=== PATIENT | female | born 1995 | race African-American/Black ===

== ENCOUNTER 2017-04-19 11:06 | Emergency (ER) | payer SELFPAY ==
[2017-04-19] MEDS ORDERED: HYDROCODONE/ACETAMINOPHEN 5-325 MG TABLET PO ONE (11:51)
--- NOTE | 2017-04-19 11:59 | ER Document Report ---
ED GI/ - General Chief Complaint: Abdominal Pain Stated Complaint: PAIN AT SURGICAL SITE Time Seen by Provider: 04/19/17 11:31 TRAVEL OUTSIDE OF THE [place] IN LAST 30 DAYS: No - HPI Patient complains to provider of: Pelvic pain Timing/Duration: Persistent Quality of pain: Sharp Severity at maximum: Severe Severity in ED: Moderate Location: Suprapubic Associated symptoms: None Exacerbated by: Denies Relieved by: Denies Similar symptoms previously: Yes Recently seen / treated by doctor: Yes Notes: 04/19/17 11:59 04/19/17 11:53 Patient is a 25-year-old female presenting to the emergency room complaining of pain to her scar that has been going on since the beginning of the year, she states that she has been seen by her SALES [employer] who put her on Depo- Provera hoping it would make her pain better, however it has not, she denies any fever or chills, no dysuria, no nausea or vomiting, no vaginal discharge or irregular bleeding, although she did develop some spotting a couple days ago, states the pain doubled her over today - Related Data Allergies/Adverse Reactions: No Known Allergies Allergy (Verified 04/19/17 11:10) Past Medical History - General Information source: Patient - Social History Smoking Status: Never Smoker Family History: Reviewed & Not Pertinent Renal/ Medical History: Denies: Hx Peritoneal Dialysis Review of Systems - Review of Systems Constitutional: No symptoms reported EENT: No symptoms reported Cardiovascular: No symptoms reported Respiratory: No symptoms reported Gastrointestinal: See HPI Genitourinary: No symptoms reported Female Genitourinary: No symptoms reported Musculoskeletal: No symptoms reported Skin: No symptoms reported Hematologic/Lymphatic: No symptoms reported Neurological/Psychological: No symptoms reported -: Yes All other systems reviewed and negative Physical Exam - Vital signs Vitals: Temp Pulse Resp BP Pulse Ox 98.6 F 67 20 123/51 L 100 04/19/17 11:10 04/19/17 11:10 04/19/17 11:10 04/19/17 11:10 04/19/17 11:10 Interpretation: Normal - General General appearance: Appears well, Alert - HEENT Head: Normocephalic, Atraumatic Eyes: Normal Pupils: PERRL - Respiratory Respiratory status: No respiratory distress Chest status: Nontender Breath sounds: Normal Chest palpation: Normal - Cardiovascular Rhythm: Regular Heart sounds: Normal auscultation Murmur: No - Abdominal Inspection: Normal Distension: No distension Bowel sounds: Normal Tenderness: Tender - In the suprapubic region at the midline of patient's C- section scar there is a 2 cm firm nodule that is tender to palpate, there is no erythema, no fluctuance and no drainage, the scar is otherwise clean dry and intact Organomegaly: No organomegaly - Back Back: Normal, Nontender - Extremities General upper extremity: Normal inspection, Nontender, Normal color, Normal ROM , Normal temperature General lower extremity: Normal inspection, Nontender, Normal color, Normal ROM , Normal temperature, Normal weight bearing. No: Alexandra's sign - Neurological Neuro grossly intact: Yes Cognition: Normal Orientation: AAOx4 K[place] Coma Scale Eye Opening: Spontaneous Kulwant Coma Scale Verbal: Oriented [place] Coma Scale Motor: Obeys Commands [place] Coma Scale Total: 15 Speech: Normal Motor strength normal: LUE, RUE, LLE, RLE Sensory: Normal - Psychological Associated symptoms: Normal affect, Normal mood - Skin Skin Temperature: Warm Skin Moisture: Dry Skin Color: Normal Course - Re-evaluation Re-evalutation: 04/19/17 15:54 Ultrasound findings were discussed with on-call OB, Dr. Tellez, she says findings are consistent with endometrioma, recommends patient receive pain medication and follow-up in the office next week for possible resection, this plan and lab and imaging findings were discussed with patient at bedside as well and she is in agreement - Vital Signs Vital signs: Temp Pulse Resp BP Pulse Ox 98.6 F 67 20 123/51 L 100 04/19/17 11:10 04/19/17 11:10 04/19/17 11:10 04/19/17 11:10 04/19/17 11:10 - Laboratory Laboratory results interpreted by me: 04/19/17 12:15 Urine Blood SMALL H Ur Leukocyte Esterase TRACE H - Diagnostic Test Radiology reviewed: Image reviewed, Reports reviewed Discharge - Discharge Clinical Impression: Pelvic pain, Endometrioma Condition: Stable Disposition: HOME, SELF-CARE Instructions: Oral Narcotic Medication ([facility]), Pelvic Pain ([facility]) Additional Instructions: Follow-up with [employer] in the office next week. Return to the emergency room if symptoms worsen or any additional concerns. Prescriptions: Tramadol HCl/Acetaminophen [Ultracet 37.5 mg/325 mg Tablet] 1 each PO Q6 #20 tablet Forms: Return to Work Referrals: LATISHA ANNE MD [Primary Care Provider] - Follow up as needed
[2017-04-19 12:32] LABS: APPEARANCE,URINE CLEAR; BILIRUBIN,URINE NEGATIVE (NEGATIVE); GLUCOSE, URINE NEGATIVE (NEGATIVE); KETONES,URINE NEGATIVE (NEGATIVE); LEUKOCYTE ESTERASE,URINE TRACE (NEGATIVE); NITRITE,URINE NEGATIVE (NEGATIVE); PROTEIN,URINE NEGATIVE (NEGATIVE); URINE SPECIFIC GRAVITY 1.013; UROBILINOGEN,URINE NEGATIVE mg/dL (<2.0)
--- NOTE | 2017-04-19 15:39 | RADIOLOGY REPORT (SQ) ---
EXAM DESCRIPTION: U/S NON OB PEL W/DOPPLER COMPLETED DATE/TIME: 04/19/2017 3:13 pm REASON FOR STUDY: pain at c-sec scar COMPARISON: None. TECHNIQUE: Dynamic and static grayscale images acquired of the pelvis via transabdominal approach an d recorded on PACS. Additional selected color Doppler and spectral images recorded. LIMITATIONS: Mildly limited by body habitus and uterine position. FINDINGS: UTERUS: Contour normal. No mass. ENDOMETRIAL STRIPE: No focal or generalized thickening. No masses. CERVIX: No nabothian cysts. RIGHT OVARY: No abnormal masses. RIGHT OVARY DOPPLER: Normal arterial vascular flow without evidence for torsion. LEFT OVARY: Not seen. LEFT OVARY DOPPLER: Ovary not visualized. FREE FLUID: None noted. OTHER: In the ventral abdominal wall deep subcutaneous tissues underlying the area of scar, there is irregular hypoechoic tissue with internal blood flow. This could simply represent exuberan t scar. Endometriosis implant could have a similar appearance. At least by ultrasound, this does no t look like drainable fluid. MEASUREMENTS: UTERUS: 7 x 4 cm. ENDOMETRIAL STRIPE: 5 mm. RIGHT OVARY: 3 x 2 x 2 cm LEFT OVARY: Not seen. IMPRESSION: 1. Uterus and right ovary fairly unremarkable. Left ovary not seen. 2. Heterogeneous hypoechoic tissue along the abdominal wall close to the region of scar. Potentially exuber ant scarring/keloid formation. Mass/ endometriosis implant also in the differential. This does not look like simple drainable fluid. TECHNICAL DOCUMENTATION: JOB ID: [id number] [employer]- All Rights Reserved
[2017-04-19 15:59] VITALS: BP 109/67
== END 2017-04-19 16:01 | disposition home or self-care (01) ==
LOC: ER 11:06
DX: R10.2 Pelvic and perineal pain (principal); N80.9 Endometriosis, unspecified
CPT/HCPCS: 76856; 81001; 93976; 99284

== ENCOUNTER 2017-04-22 11:58 | Emergency (ER) | payer SELFPAY ==
[2017-04-22 12:23] VITALS: BP 118/65
[2017-04-22] MEDS ORDERED: OXYCODONE-ACETAMINOPHEN 5-325 MG TABLET PO ONE (12:56)
--- NOTE | 2017-04-22 12:56 | ER Document Report ---
ED General - General Chief Complaint: Abdominal Pain Stated Complaint: ABDOMINAL PAIN Time Seen by Provider: 04/22/17 12:52 Mode of Arrival: Ambulatory Information source: Patient Notes: Patient states she was seen here 3 days ago. At that time she was diagnosed with an endometrioma. She was sent home with tramadol and instructed to follow- up with the [facility] [employer] doctor, Dr. Robles. She states she has an appointment with Dr. Robles today at 2:30 PM. She states she comes in now because the tramadol is not strong enough for the pain. She denies any other new symptoms. The pain is over her scar. It does radiate across her abdomen. It is constant and severe. It is sharp. TRAVEL OUTSIDE OF THE [place] IN LAST 30 DAYS: No - Related Data Allergies/Adverse Reactions: No Known Allergies Allergy (Verified 04/22/17 12:22) Past Medical History - General Information source: Patient - Social History Smoking Status: Never Smoker Frequency of alcohol use: Occasional Drug Abuse: None Family History: Reviewed & Not Pertinent Renal/ Medical History: Denies: Hx Peritoneal Dialysis Past Surgical History: Reports: Hx Section Review of Systems - Review of Systems Constitutional: denies: Chills, Fever Cardiovascular: denies: Chest pain, Palpitations Respiratory: denies: Cough, Short of breath Physical Exam - Vital signs Vitals: Temp Pulse Resp BP Pulse Ox 98.7 F 82 18 118/65 98 04/22/17 12:21 04/22/17 12:21 04/22/17 12:21 04/22/17 12:21 04/22/17 12:21 Interpretation: Normal - General General appearance: Appears well, Alert - Respiratory Respiratory status: No respiratory distress Chest status: Nontender Breath sounds: Normal Chest palpation: Normal - Cardiovascular Rhythm: Regular Heart sounds: Normal auscultation Murmur: No - Abdominal Distension: No distension Tenderness: Tender Organomegaly: No organomegaly - Tender over lower abdomen - Psychological Associated symptoms: Normal affect, Normal mood - Skin Skin Temperature: Warm Skin Moisture: Dry Skin Color: Normal Course - Vital Signs Vital signs: Temp Pulse Resp BP Pulse Ox 98.7 F 82 18 118/65 98 04/22/17 12:21 04/22/17 12:21 04/22/17 12:21 04/22/17 12:21 04/22/17 12:21 Discharge - Discharge Clinical Impression: Endometrioma Condition: Stable Disposition: HOME, SELF-CARE Instructions: Abdominal Pain ([facility]) Additional Instructions: Follow-up today with Dr. Robles as scheduled. Prescriptions: Oxycodone HCl/Acetaminophen [Percocet 5-325 mg Tablet] 1 - 2 tab PO Q4H PRN #10 tablet PRN Reason: Referrals: SANTA ROBLES MD [ACTIVE STAFF] - Follow up as needed
== END 2017-04-22 13:06 | disposition home or self-care (01) ==
LOC: ER 11:58
DX: N80.9 Endometriosis, unspecified (principal); R10.9 Unspecified abdominal pain
CPT/HCPCS: 99283

== ENCOUNTER 2017-05-18 21:06 | Emergency (ER) | payer SELFPAY ==
[2017-05-18 21:16] VITALS: BP 135/69
--- NOTE | 2017-05-18 23:39 | ER Document Report ---
ED General - General Chief Complaint: Incision Pain Stated Complaint: PAIN AT INCISION SITE Time Seen by Provider: 05/18/17 22:12 Notes: Patient is a 22-year-old female with a past medical history of chronic lower abdominal pain since August 2016. She states it is a constant, stabbing pain to the lower abdomen. She states that she has tried ibuprofen, Tylenol, Percocet, and tramadol none of which have helped her pain. She was also given a dose of a Depo-Provera shot which she states did not control the pain. She really has been diagnosed with endometriosis by [facility] and was scheduled for surgical management but due to lack of insurance was unable to follow through on having the surgery completed. She states he came today because she could not take the pain any longer. Nothing has been noted to cause worsening of the pain. She denies any fever or constitutional symptoms. No vomiting or diarrhea. She denies any vaginal bleeding or discharge. TRAVEL OUTSIDE OF THE [place] IN LAST 30 DAYS: No - Related Data Allergies/Adverse Reactions: No Known Allergies Allergy (Verified 04/22/17 12:22) Past Medical History - General Information source: Patient - Social History Smoking Status: Never Smoker Frequency of alcohol use: None Drug Abuse: None Family History: Reviewed & Not Pertinent Patient has suicidal ideation: No Patient has homicidal ideation: No Renal/ Medical History: Denies: Hx Peritoneal Dialysis Past Surgical History: Reports: Hx Section Review of Systems - Review of Systems Notes: Constitutional: Negative for fever. HENT: Negative for sore throat. Eyes: Negative for visual changes. Cardiovascular: Negative for chest pain. Respiratory: Negative for shortness of breath. Gastrointestinal: Positive for abdominal pain Genitourinary: Negative for dysuria. Musculoskeletal: Negative for back pain. Skin: Negative for rash. Neurological: Negative for headaches, weakness or numbness. 10 point ROS negative except as marked above and in HPI. Physical Exam - Vital signs Vitals: Temp Pulse Resp BP Pulse Ox 98.1 F 96 18 135/69 H 98 05/18/17 21:14 05/18/17 21:14 05/18/17 21:14 05/18/17 21:14 05/18/17 21:14 Interpretation: Normal Notes: PHYSICAL EXAMINATION: GENERAL: Well-appearing, well-nourished and in no acute distress. HEAD: Atraumatic, normocephalic. EYES: Pupils equal round and reactive to light, extraocular movements intact, sclera anicteric, conjunctiva are normal. ENT: nares patent, oropharynx clear without exudates. Moist mucous membranes. NECK: Normal range of motion, supple without lymphadenopathy LUNGS: Breath sounds clear to auscultation bilaterally and equal. No wheezes rales or rhonchi. HEART: Regular rate and rhythm without murmurs ABDOMEN: Soft, nontender, normoactive bowel sounds. No guarding, no rebound. No masses appreciated. EXTREMITIES: Normal range of motion, no pitting or edema. No cyanosis. NEUROLOGICAL: No focal neurological deficits. Moves all extremities spontaneously and on command. PSYCH: Normal mood, normal affect. SKIN: Warm, Dry, normal turgor, no rashes or lesions noted. Course - Re-evaluation Re-evalutation: 05/19/17 04:22 Patient presents with chronic lower abdominal pain thought to be secondary to endometriosis. She has no focal abdominal tenderness on examination. No rebound or guarding. Denies any dysuria. Nothing is new or different about her abdominal pain today that prompted her come to the emergency department. Last menstrual period was 3 days ago. I do not suspect an acute appendicitis, ovarian torsion, tubo-ovarian abscess, nephrolithiasis, acute pyelonephritis, or cardiac etiology based on her exam and history. I do not see any indication for labs or imaging as patient is ready had a diagnosis made in regards to this abdominal pain and does admit that there is nothing different tonight relative to the past 6 months. I have offered to start her on oral control pills as an attempt to control her endometriosis and she is agreeable to this. At this time will discharge with return precautions and follow-up recommendations. Verbal discharge instructions given a the bedside and opportunity for questions given. Medication warnings reviewed. Patient is in agreement with this plan and has verbalized understanding of return precautions and the need for primary care follow-up in the next 24-72 hours. - Vital Signs Vital signs: Temp Pulse Resp BP Pulse Ox 98.1 F 96 18 135/69 H 98 05/18/17 21:14 05/18/17 21:14 05/18/17 21:14 05/18/17 21:14 05/18/17 21:14 Discharge - Discharge Clinical Impression: Chronic abdominal pain Condition: Stable Disposition: HOME, SELF-CARE Additional Instructions: You were seen for ongoing abdominal pain thought to be due to endometriosis. Your been started oral control pills to attempt to regulate your cycle and eliminate your pain. Please follow-up with [facility] as scheduled. Return for worsening pain, fever greater 101F, persistent vomiting, or any other symptoms that are worrisome to you. Prescriptions: Norgestimate-Ethinyl Estradiol [Sprintec 28 Day Tablet] 1 each PO DAILY #2 packet Referrals: CHUCK ESTES MD [Primary Care Provider] - Follow up as needed
== END 2017-05-18 23:49 | disposition home or self-care (01) ==
LOC: ER 21:06
DX: G89.29 Other chronic pain (principal); R10.30 Lower abdominal pain, unspecified
CPT/HCPCS: 99281

== ENCOUNTER 2017-06-30 09:07 | Day surgery (SDC) | payer MEDICAID ==
[2017-06-25 11:34] LABS: HEMATOCRIT 34.1 % (36.0-47.0); HEMOGLOBIN 10.7 g/dL (12.0-15.5); MEAN CORPUSCULAR HEMOGLOBIN 21.8 pg (27.0-33.4); MEAN CORPUSCULAR HGB CONC 31.3 g/dL (32.0-36.0); MEAN CORPUSCULAR VOLUME 70 fl (80-97); RED BLOOD COUNT 4.89 10^6/uL (3.72-5.28); RED CELL DISTRIBUTION WIDTH 18.1 % (11.5-14.0); WHITE BLOOD COUNT 7.2 10^3/uL (4.0-10.5)
[~2017-06-30 09:07] MED LIST: FAMOTIDINE INJ/PF 20 MG/2 ML SDV IV PRN; RINGERS SOLUTION,LACTATED 1,000 ML IV PRN
[2017-06-30] MEDS ORDERED: FENTANYL CITRATE INJ/PF 100 MCG/2 ML AMPUL ONE (09:29)
[2017-06-30] MEDS ORDERED: PROPOFOL INJ 200 MG/20 ML VIAL IV ONE (09:30)
[2017-06-30] MEDS ORDERED: MIDAZOLAM 2 MG/2 ML INJ ONE (09:30)
[2017-06-30] MEDS ORDERED: IBUPROFEN INJ 800 MG/8 ML VIAL IV ONE (09:30)
[2017-06-30] MEDS ORDERED: DEXAMETHASONE SOD PHOSPHATE INJ 4 MG/1 ML VIAL ONE (09:38)
[2017-06-30] MEDS ORDERED: ONDANSETRON HCL INJ/PF 4 MG/2 ML SDV ONE (09:38)
[2017-06-30] MEDS ORDERED: ONDANSETRON HCL INJ/PF 4 MG/2 ML SDV IV PRN (10:13)
[2017-06-30] MEDS ORDERED: MORPHINE SULFATE 10 MG/ML INJ IV PRN (10:13)
[2017-06-30] MEDS ORDERED: FENTANYL CITRATE INJ/PF 100 MCG/2 ML AMPUL IV PRN ×3 (10:13)
[2017-06-30] MEDS ORDERED: DIPHENHYDRAMINE HCL 50 MG/ML VIAL IV PRN (10:13)
[2017-06-30] MEDS ORDERED: PROMETHAZINE HCL INJ 25 MG/1 ML VIAL IV PRN (10:13)
[2017-06-30] MEDS ORDERED: MEPERIDINE HCL/PF INJ 25 MG/1 ML DISP.SYRIN IV PRN (10:13)
[2017-06-30] MEDS: FENTANYL CITRATE INJ/PF 100 MCG/2 ML AMPUL ONE ×2 (10:55→11:02)
[2017-06-30] MEDS: MORPHINE SULFATE 10 MG/ML INJ ONE ×2 (11:20→11:50)
--- NOTE | 2017-06-30 11:38 | OPERATIVE REPORT E ---
Operative Report NAME: DARRIN SOOD : 1995 AGE: 22Y DATE OF SURGERY: 06/30/2017 ROOM: PREOPERATIVE DIAGNOSIS: Endometrioma at section scar. POSTOPERATIVE DIAGNOSIS: Endometria at section scar. SURGEON: SANTA ROBLES M.D. ANESTHESIA: Dr. Le with [facility]. FINDINGS: A 2 cm endometrioma above the fascia in the midline with a scar. COMPLICATIONS: None. ESTIMATED BLOOD LOSS: 20 mL. SPECIMENS REMOVED: Endometrioma. PROCEDURE: Excision of endometrioma. PROCEDURE IN DETAIL: The patient was taken to the operating room and prepared and draped in a normal sterile fashion in the supine position. Following the patient's previous scar, this was opened using a 10-blade scalpel. The endometrioma was located in the subcutaneous tissues quickly and this was grasped with graspers with teeth and the endometrioma was palpated and removed circumferentially using both Bovie and sharp dissection with Irene scissors until the specimen was completely freed. The endometrioma was then removed. A couple more pieces of endometrioma were felt to be still within the early layer of the fascia. This was transected carefully using Irene scissors and Bovie as needed for cautery until I felt that the endometrioma was completely excised. I then copiously irrigated the defect and suctioned the water away repetitively approximately 3 times to try to remove any residual endometrial cells. The defect at the pre-fascial layer was then closed with 0 Vicryl in a running fashion. A couple interrupted sutures were placed in the subcu with the 0 Vicryl and then the skin was closed with 4-0 Vicryl. Patient tolerated procedure well. Sponge, lap, and needle counts were correct x2. Patient was taken to recovery in stable condition. DICTATING PHYSICIAN: SANTA ROBLES M.D. [id number] PHY#: [id number] ID: [id number] JOB#: [id number] ACCT: [id number] cc:SANTA ROBLES M.D. >
[2017-06-30] MEDS ORDERED: OXYCODONE-ACETAMINOPHEN 5-325 MG TABLET ONE (12:34)
[2017-06-30] MEDS ORDERED: OXYCODONE-ACETAMINOPHEN 5-325 MG TABLET PO ONE (13:15)
[2017-06-30 14:08] VITALS: BP 117/72
--- NOTE | 2017-07-10 17:13 | PDOC DISCHARGE SUMMARY ---
General - Admit/Disc Date/PCP Admission Date/Primary Care Provider: CHUCK ESTES MD Discharge Date: 06/30/17 - Discharge Diagnosis (1) Endometrioma Is this a current diagnosis for this admission?: Yes (2) Post-op pain Is this a current diagnosis for this admission?: Yes - Additional Information Discharge Diet: As Tolerated Discharge Activity: Activity As Tolerated, No Driving, No Lifting Over 10 Pounds , No Lifting/Push/Pulling, No tub bath Home Medications: Promethazine HCl 25 mg PO Q4 #25 tablet 07/04/17 History of Present Illness History of Present Illness: DARRIN SOOD is a 22 year old female Hospital Course Hospital Course: multiple visits due to abdominal pain in c/section scar and found to have mass in midline of scar suspicious for endometrioma. Underwent excision in the OR. Please see op note for details. Physical Exam - Physical Exam Vital Signs: Temp Pulse Resp BP Pulse Ox 98.0 F 88 14 117/72 100 06/30/17 13:45 06/30/17 13:45 06/30/17 13:45 06/30/17 13:45 06/30/17 13:45 Result Laboratory Results: 06/25/17 10:29 Plan Discharge Plan: discharge home with follow up in office with me for wound check and dressing removal. strict fever precautions given Time Spent: Less than 30 Minutes
== END 2017-06-30 14:00 | disposition home or self-care (01) ==
LOC: OROUT 09:07
PROVIDERS: ATTEND Obstetrics & Gynecology
PROC: 0JB80ZZ Excision of Abdomen Subcutaneous Tissue and Fascia, Open Approach (ICD-10-PCS; principal; 2017-06-30 11:15)
DX: O34.211 Maternal care for low transverse scar from previous cesarean delivery (principal); N80.6 Endometriosis in cutaneous scar; R10.2 Pelvic and perineal pain
CPT/HCPCS: 36415; 85027; 81025; 88305 ×2; 22902; J2250; J1100; J3010; J2270; J2405; J2704; S0028; J1741; 840

== ENCOUNTER 2017-07-04 06:42 | Emergency (ER) | payer MEDICAID ==
--- NOTE | 2017-07-04 07:50 | ER Document Report ---
ED GI/ - General Chief Complaint: Nausea/Vomiting Stated Complaint: POST SURGICAL PAIN Time Seen by Provider: 07/04/17 07:04 Mode of Arrival: Ambulatory Information source: Patient Notes: Patient is a 22-year-old black female comes emergency room with an onset of vomiting and postop pain. Patient was in surgery on 1114 surgery was performed by Dr. Chrissie Tellez surgery was for an endometrioma secondary to the C- section scar that had been developing an increase in pain over the past several months. According to the note patient did well in surgery and was discharged home for follow-up in 1 week. 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 She also states that she has had an increase in urination. She denies any fevers and patient states the postop pain is getting better and primarily she is here for the vomiting. She denies having any fevers she is not short of breath she denies any chest pain and she denies any vomiting only severe nausea. TRAVEL OUTSIDE OF THE [place] IN LAST 30 DAYS: No - HPI Patient complains to provider of: Pelvic pain Onset: Last week Timing/Duration: Gradual, Constant Quality of pain: Achy Severity at maximum: Moderate Severity in ED: Mild Pain Level: 1 Context: Lifting, Other - Postop surgery/suprapubic area and see section scar area. Location: Suprapubic, Pelvis Adult Front & Back Diagram: 1 - Area of pain and discomfort Vaginal bleeding (Compared to normal period): None Menstrual period history: Abnormal : 1 Para: 1 Abortions: 0 Sexual history: Inactive Associated symptoms: Nausea, Urinary frequency Exacerbated by: Denies Relieved by: Denies Similar symptoms previously: Yes Recently seen / treated by doctor: Yes - Related Data Allergies/Adverse Reactions: No Known Allergies Allergy (Verified 07/04/17 06:54) Past Medical History - General Information source: Patient - Social History Smoking Status: Never Smoker Cigarette use (# per day): No Chew tobacco use (# tins/day): No Smoking Education Provided: No Frequency of alcohol use: Rare Drug Abuse: None Family History: Reviewed & Not Pertinent Patient has suicidal ideation: No Patient has homicidal ideation: No - Past Medical History Cardiac Medical History: Denies: Hx Coronary Artery Disease, Hx Heart Attack, Hx Hypertension Pulmonary Medical History: Denies: Hx Asthma, Hx Bronchitis, Hx COPD, Hx Pneumonia Neurological Medical History: Denies: Hx Cerebrovascular Accident, Hx Seizures Renal/ Medical History: Denies: Hx Peritoneal Dialysis Musculoskeltal Medical History: Denies Hx Arthritis Past Surgical History: Reports: Hx Section - Immunizations Hx Diphtheria, Pertussis, Tetanus Vaccination: Yes Review of Systems - Review of Systems Constitutional: No symptoms reported EENT: No symptoms reported Cardiovascular: No symptoms reported Respiratory: No symptoms reported Gastrointestinal: Abdominal pain, Nausea, Constipation Genitourinary: Frequency Female Genitourinary: See HPI Musculoskeletal: No symptoms reported Skin: No symptoms reported Hematologic/Lymphatic: No symptoms reported Neurological/Psychological: No symptoms reported -: Yes All other systems reviewed and negative Physical Exam - Vital signs Vitals: Temp Pulse Resp BP Pulse Ox 98.9 F 77 20 125/57 L 100 07/04/17 06:54 07/04/17 06:54 07/04/17 06:54 07/04/17 06:54 07/04/17 06:54 Interpretation: Normal - General General appearance: Other - Slightly uncomfortable appearing - HEENT Head: Normocephalic, Atraumatic Nasal: Normal Mouth/Lips: Normal Mucous membranes: Moist Pharynx: Normal - Respiratory Respiratory status: No respiratory distress Chest status: Nontender Breath sounds: Normal. No: Decreased air movement, Nonproductive cough, Productive cough, Rales, Rhonchi, Stridor, Wheezing, Other Chest palpation: Normal - Cardiovascular Rhythm: Regular Heart sounds: Normal auscultation Murmur: No - Abdominal Inspection: Normal, Wounds, Morbidly Obese, Other - See skin and genitourinary below Distension: No distension Bowel sounds: Normal Tenderness: Nontender, Tender, Other - See genitourinary - Genitourinary Notes: Examination patient's suprapubic area along the line shows that it is covered with Adaptic at this time is clear so able to visualize the surgical area which appears very normal. There is no signs of erythema or signs of any type of infection at this time. Patient is mildly tender to the area to palpation again there is no drainage there is no sign of infection. - Neurological Neuro grossly intact: Yes Cognition: Normal Orientation: AAOx4 [place] Coma Scale Eye Opening: Spontaneous [place] Coma Scale Verbal: Oriented [place] Coma Scale Motor: Obeys Commands [place] Coma Scale Total: 15 Speech: Normal - Skin Skin Temperature: Warm Skin Moisture: Dry Skin Color: Normal, [place], Other - As stated earlier examination of the surgical area looks clean. There is no sign of active infection mild tenderness to the surgical line but again no significant discomfort or pain to palpation. Course - Vital Signs Vital signs: Temp Pulse Resp BP Pulse Ox 98.9 F 77 20 125/57 L 100 07/04/17 06:54 07/04/17 06:54 07/04/17 06:54 07/04/17 06:54 07/04/17 06:54 - Laboratory Laboratory results interpreted by me: 07/04/17 07:55 Urine Urobilinogen 4.0 H Ur Leukocyte Esterase LARGE H - Transfer of Care Notes: 07/04/17 07:56 Given patient just recently 4-5 days postop concerns do have 2 noted on possible blood clots and PE. At this time my physical exam and the way patient is responding does not appear to be related to any type of a DVT or PE presentation. She does have some constipation issues secondary to her Percocet. She also has some nausea which still could be postoperative but has been increasing. She also has increasing frequency of urine therefore checking a urine since most likely patient had a Sanchez cath placed during her surgical intervention. At this time the surgical wound area looks fantastic there is no sign of erythema or infection. We will check her urine and treat her for nausea. She has pain medications at home and she is currently taking an antibiotic which she does not know which one. 07/04/17 08:21 Reexamination patient after return of her urine shows her to be sitting comfortable. At this time her urine was not a clean-catch urine she had greater than 35 epithelial cells and she had no nitrites she also had large leukocytes. So at this point I believe this was a contaminated urine. Patient is currently on an antibiotic I have not been able to find which antibiotic she is currently on but feel that she is probably covering case she is getting a urinary tract infection. I will send her home on some promethazine for her nausea and she has an appointment to follow-up with her surgeon either Friday or Friday. At this point I will give her out through Friday so she can see her surgeon. She had been informed that if anything changes if she gets short of breath or chest pain ,spikes a fever or has any concerns return to ER for a recheck. Discharge - Discharge Clinical Impression: Post-op pain Nausea after anesthesia Qualifiers: Encounter type: initial encounter Qualified Code(s): T88.59XA - Other complications of anesthesia, initial encounter; R11.0 - Nausea; R11.0 - Nausea Condition: Good Disposition: HOME, SELF-CARE Instructions: Nausea or Vomiting, Nonspecific ([facility]) Additional Instructions: Home and continue your current medications. Finish all the antibiotics that your physician had given you. As we discussed should you have any increasing shortness of breath any type of chest pain or you spike a fever or you have any concerns at all return to ER for a recheck. Prescriptions: Promethazine HCl 25 mg PO Q4 #25 tablet Forms: Elevated Blood Pressure, Return to Work Referrals: CHUCK ESTES MD [Primary Care Provider] - Follow up as needed
[2017-07-04 08:09] LABS: APPEARANCE,URINE CLOUDY; BILIRUBIN,URINE NEGATIVE (NEGATIVE); GLUCOSE, URINE NEGATIVE (NEGATIVE); KETONES,URINE NEGATIVE (NEGATIVE); LEUKOCYTE ESTERASE,URINE LARGE (NEGATIVE); NITRITE,URINE NEGATIVE (NEGATIVE); PROTEIN,URINE NEGATIVE (NEGATIVE)
[2017-07-04 08:46] VITALS: BP 118/72
== END 2017-07-04 08:45 | disposition home or self-care (01) ==
LOC: ER 06:42
DX: T88.59XA Other complications of anesthesia, initial encounter (principal); G89.18 Other acute postprocedural pain; R11.2 Nausea with vomiting, unspecified; R10.2 Pelvic and perineal pain; X58.XXXA Exposure to other specified factors, initial encounter
CPT/HCPCS: 81001; 99283

== ENCOUNTER 2017-10-26 17:16 | Emergency (ER) | payer OTHER, MEDICAID ==
[2017-10-26 17:24] VITALS: BP 126/62
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
== END 2017-10-26 18:25 | disposition home or self-care (01) ==
LOC: ER 17:16
DX: Z04.1 Encounter for examination and observation following transport accident (principal); V89.2XXA Person injured in unspecified motor-vehicle accident, traffic, initial encounter
CPT/HCPCS: 99283

== ENCOUNTER 2018-01-14 21:53 | Emergency (ER) | payer MEDICAID ==
[2018-01-15 00:07] LABS: ABSOLUTE BASOPHILS # (AUTO) 0.1 10^3/uL (0.0-0.2); ABSOLUTE EOSINOPHILS # (AUTO) 0.1 10^3/uL (0.0-0.6); ABSOLUTE LYMPHOCYTES (AUTO) 2.1 10^3/uL (0.5-4.7); ABSOLUTE MONOCYTES (AUTO) 0.7 10^3/uL (0.1-1.4); BASOPHILS % (AUTO) 0.4 % (0-2); EOSINOPHILS % (AUTO) 0.6 % (0-6); HEMATOCRIT 34.8 % (36.0-47.0); HEMOGLOBIN 11.6 g/dL (12.0-15.5); LYMPHOCYTES % (AUTO) 17.5 % (13-45); MEAN CORPUSCULAR HEMOGLOBIN 24.9 pg (27.0-33.4); MEAN CORPUSCULAR HGB CONC 33.5 g/dL (32.0-36.0); MEAN CORPUSCULAR VOLUME 74 fl (80-97); MONOCYTES % (AUTO) 5.8 % (3-13); PLATELET COUNT 405 10^3/uL (150-450); RED BLOOD COUNT 4.68 10^6/uL (3.72-5.28); RED CELL DISTRIBUTION WIDTH 16.8 % (11.5-14.0); SEGMENTED NEUTROPHILS % (AUTO) 75.7 % (42-78); TOTAL CELLS COUNTED % (AUTO) 100 %; WHITE BLOOD COUNT 11.8 10^3/uL (4.0-10.5)
[2018-01-15 00:08] LABS: APPEARANCE,URINE SLIGHTLY-CLOUDY; BILIRUBIN,URINE NEGATIVE (NEGATIVE); GLUCOSE, URINE NEGATIVE (NEGATIVE); KETONES,URINE 20 mg/dL (NEGATIVE); LEUKOCYTE ESTERASE,URINE LARGE (NEGATIVE); NITRITE,URINE NEGATIVE (NEGATIVE); PROTEIN,URINE 30 mg/dL (NEGATIVE); URINE SPECIFIC GRAVITY 1.028
[2018-01-15 00:10] LABS: COLOR,URINE YELLOW
[2018-01-15 00:19] LABS: ALANINE AMINOTRANSFERASE 18 U/L (9-52); ALBUMIN 4.1 g/dL (3.5-5.0); ALKALINE PHOSPHATASE 61 U/L (38-126); ANION GAP 15 (5-19); ASPARTATE AMINO TRANSFERASE 24 U/L (14-36); BILIRUBIN,DIRECT 0.3 mg/dL (0.0-0.4); BILIRUBIN,TOTAL 0.3 mg/dL (0.2-1.3); BLOOD UREA NITROGEN 11 mg/dL (7-20); CALCIUM 9.9 mg/dL (8.4-10.2); CARBON DIOXIDE 22 mmol/L (22-30); CHLORIDE 101 mmol/L (98-107); GLUCOSE 98 mg/dL (75-110); POTASSIUM 3.9 mmol/L (3.6-5.0); SODIUM 137.8 mmol/L (137-145); TOTAL PROTEIN 7.7 g/dL (6.3-8.2)
[2018-01-15] MEDS ORDERED: ONDANSETRON HCL INJ/PF 4 MG/2 ML SDV IV ONE (01:57)
[2018-01-15] MEDS ORDERED: NORMAL SALINE 1000 ML 1,000 ML IV ONE (01:57)
--- NOTE | 2018-01-15 01:59 | ER Document Report ---
ED GI/ - General Chief Complaint: Nausea/Vomiting Stated Complaint: VOMITING Time Seen by Provider: 01/15/18 01:51 Notes: Patient is a 23-year-old female, at uncertain gestational age, the comes emergency department for chief complaint of vomiting, abdominal cramping, and she has also had vaginal bleeding and a whitish vaginal discharge since yesterday. She denies fever, flank pain. She also has some dysuria. She takes no daily medications. TRAVEL OUTSIDE OF THE [place] IN LAST 30 DAYS: No - Related Data Allergies/Adverse Reactions: No Known Allergies Allergy (Verified 10/26/17 17:18) Past Medical History - General Information source: Patient - Social History Smoking Status: Never Smoker Frequency of alcohol use: None Drug Abuse: None Lives with: Family Family History: Reviewed & Not Pertinent - Past Medical History Cardiac Medical History: Denies: Hx Coronary Artery Disease, Hx Heart Attack, Hx Hypertension Pulmonary Medical History: Denies: Hx Asthma, Hx Bronchitis, Hx COPD, Hx Pneumonia Neurological Medical History: Denies: Hx Cerebrovascular Accident, Hx Seizures Renal/ Medical History: Denies: Hx Peritoneal Dialysis Musculoskeltal Medical History: Denies Hx Arthritis Past Surgical History: Reports: Hx Section, Hx Gynecologic Surgery - mass removed - Immunizations Hx Diphtheria, Pertussis, Tetanus Vaccination: Yes Review of Systems - Review of Systems Constitutional: No symptoms reported EENT: No symptoms reported Cardiovascular: No symptoms reported Respiratory: No symptoms reported Gastrointestinal: See HPI Genitourinary: See HPI Female Genitourinary: See HPI Musculoskeletal: No symptoms reported Skin: No symptoms reported Hematologic/Lymphatic: No symptoms reported Neurological/Psychological: No symptoms reported Physical Exam - Vital signs Vitals: Temp Pulse Resp BP Pulse Ox 99.5 F 97 16 127/70 H 94 01/14/18 22:50 01/14/18 22:50 01/14/18 22:50 01/14/18 22:50 01/14/18 22:50 Interpretation: Normal - General General appearance: Appears well, Alert In distress: None - HEENT Head: Normocephalic, Atraumatic Eyes: Normal Pupils: PERRL Nasal: Normal Mouth/Lips: Normal Mucous membranes: Dry Pharynx: Normal Neck: Normal - Respiratory Respiratory status: No respiratory distress Chest status: Nontender Breath sounds: Normal Chest palpation: Normal - Cardiovascular Rhythm: Regular. No: Tachycardia Heart sounds: Normal auscultation, S1 appreciated, S2 appreciated Murmur: No - Abdominal Inspection: Normal Distension: No distension. No: Distended Bowel sounds: Normal Tenderness: Tender - Generalized abdominal tenderness, nonspecific, no guarding Organomegaly: No organomegaly - Genitourinary Speculum exam: Cervix closed, Vaginal discharge - Moderately large amount of whitish vaginal discharge Vaginal bleeding: None Bimanuel exam: No: Cervical motion tender Notes: [place] PCT present during exam - Back Back: Normal, Nontender - Extremities General upper extremity: Normal inspection, Nontender, Normal color, Normal ROM , Normal temperature General lower extremity: Normal inspection, Nontender, Normal color, Normal ROM , Normal temperature, Normal weight bearing. No: Alexandra's sign - Neurological Neuro grossly intact: Yes Cognition: Normal Orientation: AAOx4 [place] Coma Scale Eye Opening: Spontaneous [place] Coma Scale Verbal: Oriented [place] Coma Scale Motor: Obeys Commands [place] Coma Scale Total: 15 Speech: Normal Motor strength normal: LUE, RUE, LLE, RLE Sensory: Normal - Psychological Associated symptoms: Normal affect, Normal mood - Skin Skin Temperature: Warm Skin Moisture: Dry Skin Color: Normal Course - Re-evaluation Re-evalutation: Patient vomited after Zofran, she will be given Reglan and Benadryl instead. Giving IV fluids. CBC shows mild leukocytosis, chemistry nonspecific, urine indicate infection, urine culture was placed. Physical examination and wet mount both indicate bacterial vaginosis, she will be treated for this as well. Ultrasound performed because of pain and vaginal bleeding, shows subchorionic hemorrhage, living intrauterine , no other abnormalities. RhoGam is not indicated. Discussed report, provided with copy of report, discussed treatments , follow-up, recommendations, return precautions. Patient and significant other state understanding and agreement - Vital Signs Vital signs: Temp Pulse Resp BP Pulse Ox 98.5 F 79 16 120/84 100 01/15/18 05:55 01/15/18 05:55 01/15/18 05:55 01/15/18 05:55 01/15/18 05:55 - Laboratory Result Diagrams: 01/14/18 23:53 01/14/18 23:53 Laboratory results interpreted by me: 01/14/18 01/14/18 01/14/18 23:38 23:53 23:58 WBC 11.8 H Hgb 11.6 L Hct 34.8 L MCV 74 L MCH 24.9 L RDW 16.8 H Absolute Neutrophils 9.0 H Beta HCG, Quant 457211.00 H Urine Protein 30 H Urine Ketones 20 H Urine Urobilinogen 4.0 H Ur Leukocyte Esterase LARGE H Urine HCG, Qual POSITIVE H Chlamydia DNA (PCR) 01/15/18 02:55 WBC Hgb Hct MCV MCH RDW Absolute Neutrophils Beta HCG, Quant Urine Protein Urine Ketones Urine Urobilinogen Ur Leukocyte Esterase Urine HCG, Qual Chlamydia DNA (PCR) DETECTED H Discharge - Discharge Clinical Impression: Vaginal bleeding, Vaginal discharge Vomiting Qualifiers: Vomiting type: unspecified Vomiting Intractability: non-intractable Nausea presence: with nausea Qualified Code(s): R11.2 - Nausea with vomiting, unspecified Urinary tract infection Qualifiers: Urinary tract infection type: site unspecified Hematuria presence: without hematuria Qualified Code(s): N39.0 - Urinary tract infection, site not specified Condition: Stable Disposition: HOME, SELF-CARE Additional Instructions: Your workup indicates a subchorionic bleed, this appears to be the source of your vaginal bleeding, this usually resolves with time. Perform pelvic rest -no significant physical activity including jumping, running, or sexual intercourse until cleared by [facility] [employer]. Take Keflex antibiotic for urinary tract infection. Take Flagyl antibiotic for bacterial vaginosis. Take Reglan for nausea, you can take [id number] diphenhydramine along with this as well. Return for any concerning symptoms including fever, uncontrolled vomiting, or any other concerning or worsening symptoms. Prescriptions: Cephalexin Monohydrate [Keflex 500 mg Capsule] 500 mg PO BID #14 capsule Metoclopramide HCl [Reglan] 5 mg PO ASDIR PRN #30 tablet PRN Reason: Metronidazole [Flagyl 500 mg Tablet] 500 mg PO BID #14 tablet
[2018-01-15 03:09] LABS: BACTERIA (WET MOUNT) 4+ BACTERIA SEEN; EPITHELIALS (WET MOUNT) 4+ EPITHELIALS SEEN; T.VAGINALIS (WET MOUNT) NO TRICHOMONAS SEEN; WBCS (WET MOUNT) 3+ WBCS SEEN; YEAST (WET MOUNT) NO YEAST SEEN
[2018-01-15] MEDS ORDERED: CEPHALEXIN 500 MG CAPSULE PO ONE (03:20)
--- NOTE | 2018-01-15 03:34 | RADIOLOGY REPORT (SQ) ---
EXAM DESCRIPTION: US TRANSVAGINAL CLINICAL HISTORY: 23 years Female, abd pain, vaginal bleeding, positive Comparison: None. TECHNIQUE: Transvaginal. LIMITATIONS: None. FINDINGS: Living intrauterine fetus measures 8w3d with DONOVAN of 08/24/2018. Cardiac activity is 180-bpm. Diagonal-rump length is 1.94-cm. 1.9 x 1.3 x 0.6 cSm subchorionic hemorrhage. Right ovary is not visualized. 2.9-cm left ovary, 2.6-cm cervical length, and no free fluid. IMPRESSION: Living 1st trimester intrauterine gestation with 1.9 cm perigestational hemorrhage.
[2018-01-15] MEDS ORDERED: CEFTRIAXONE INJ 1000 MG VIAL IV ONE (03:40)
[2018-01-15] MEDS ORDERED: METOCLOPRAMIDE HCL INJ/PF 10 MG/2 ML SDV IV ONE (03:40)
[2018-01-15] MEDS ORDERED: DIPHENHYDRAMINE HCL 50 MG/ML VIAL IV ONE (03:41)
[2018-01-15] MEDS ORDERED: FAMOTIDINE 20 MG TABLET PO ONE (04:23)
[2018-01-15 04:34] LABS: CHLAM PCR DETECTED (NOT DETECT); GON PCR NOT DETECTED (NOT DETECT)
[2018-01-15 05:56] VITALS: BP 120/84
== END 2018-01-15 05:56 | disposition home or self-care (01) ==
LOC: ER 21:53
DX: O20.9 Hemorrhage in early pregnancy, unspecified (principal); O23.41 Unspecified infection of urinary tract in pregnancy, first trimester; N89.8 Other specified noninflammatory disorders of vagina; O21.9 Vomiting of pregnancy, unspecified; Z3A.08 8 weeks gestation of pregnancy
CPT/HCPCS: 99284; 96361; 96375; 96365; 86900; 86901; 36415; 87086; 87210; 84702; 85025; 81025; 87088; 80053; 81001; 87491; 87591; 76817; 93976; J3490; J1200; J2765; J0696; J2405; J7030